=== PATIENT | male | born 1955 | race Caucasian/White ===

== ENCOUNTER → 2023-07-28 13:33 | Outpatient (REF) | payer MEDICARE, SELFPAY | LOC: RAD 13:33 | PROVIDERS: ATTENDING PHYSICIAN Family Medicine | DX: I10 Essential (primary) hypertension (principal); M79.89 Other specified soft tissue disorders | CPT/HCPCS: 93971 ==

== ENCOUNTER → 2023-10-16 11:30 | Outpatient (REF) | payer MEDICARE, SELFPAY | LOC: RAD 11:30 | PROVIDERS: ATTENDING PHYSICIAN Family Medicine | DX: M25.562 Pain in left knee (principal) | CPT/HCPCS: 73564 ==

== ENCOUNTER 2024-06-20 06:19 | Day surgery (SDC) | payer MEDICARE, SELFPAY | END 2024-06-20 10:55 | disposition home or self-care (01) | LOC: GI 06:19 | PROVIDERS: ATTENDING PHYSICIAN Internal Medicine Gastroenterology | DX: Z12.11 Encounter for screening for malignant neoplasm of colon (principal); D12.0 Benign neoplasm of cecum; K57.30 Diverticulosis of large intestine without perforation or abscess without bleeding; K64.8 Other hemorrhoids; Z80.0 Family history of malignant neoplasm of digestive organs | CPT/HCPCS: 45380; 88305 ==

== ENCOUNTER → 2024-07-08 15:09 | Outpatient (REF) | payer MEDICARE, SELFPAY | LOC: PAVMRI 15:09 | PROVIDERS: ATTENDING PHYSICIAN Orthopaedic Surgery; FAMILY PHYSICIAN Family Medicine | DX: M25.562 Pain in left knee (principal) | CPT/HCPCS: 73721 ==

== ENCOUNTER → 2024-09-22 07:50 | Outpatient (REF) | payer MEDICARE, SELFPAY | LOC: RAD 07:50 | PROVIDERS: ATTENDING PHYSICIAN Family Medicine | DX: Z87.891 Personal history of nicotine dependence (principal); Z91.89 Other specified personal risk factors, not elsewhere classified | CPT/HCPCS: 76770 ==

== ENCOUNTER → 2024-10-13 13:13 | Outpatient (REF) | payer MEDICARE, SELFPAY | LOC: RAD 13:13 | PROVIDERS: ATTENDING PHYSICIAN Family Medicine | DX: N28.9 Disorder of kidney and ureter, unspecified (principal) | CPT/HCPCS: 74174; Q9967 ==

== ENCOUNTER 2024-12-11 15:50 | Inpatient (IN) | payer MEDICARE, SELFPAY ==
[2024-12-11 12:24] VITALS: BP 130/86
[2024-12-11 12:45] LABS: Urine Character Slightly Cloudy (Clear)
[2024-12-11 12:53] LABS: Urine Red Blood Cell 0-2 /HPF (0-2); Urine Squamous Cell 0-2 /LPF (Few)
--- NOTE | 2024-12-11 13:16 | ED.GENMED ---
History of Present Illness
General
Chief Complaint: Fever
Source: patient and spouse
Exam Limitations: none
Time Seen by Provider: 12/11/24 13:01
History of Present Illness
History of Present Illness:
69-year-old male complaining of pyuria hematuria fevers chills urinary urgency and frequency. Symptoms started 2 days ago. Temperature low-grade. But fever and chills. Some mild right back pain. History of kidney stones.
Past History
Past History
ED Past Medical History: HTN and Other (Ocular migraine)
ED Past Surgical History: Other (Noncontributory)
Social History
Tobacco: Non-smoker
Personal:
Living: with family
Review of Systems
Review of Systems
All Other Systems: Not applicable
Constitutional: Reports fever and chills
Respiratory: Reports no symptoms
ABD/GI: Reports no symptoms
Phy Exam
Physical Exam
Physical Exam:
GENERAL: Alert and oriented in no apparent distress
EYE: Orbits normal.
NECK: Supple
CARDIAC: Regular rate and rhythm without any obvious murmurs.
LUNGS: Clear breath sounds,normal
ABDOMEN: Soft, without focal tenderness or distention. Questionable mild right CVA tenderness. No rebound or guarding no mass or hernia
NEUROLOGICAL: Alert and oriented , grossly non-focal
SKIN: Warm and dry, no rash or lesion, no discoloration, skin intact.
MUSCULOSKELETAL: No edema,no deformity.Good color
PSYCH: Normal and appropriate interaction.
Course
Orders/Labs/Results
Orders:
Orders
12/11/24 12:32
Urinalysis Reflex To Culture Urgent
Date Specimen was Collected: 12/11/24
Time Specimen was Collected: 12:28
Urine Microscopic Reflex Cult Urgent
Urine Culture Urgent
AKBAR Source: U
Specimen Description:
Date Specimen was Collected: 12/11/24
Time Specimen was Collected: 12:28
12/11/24 13:08
IV Insert/Care/Rem.- Treatment PRN
0.9% Sodium Chloride 1000 ml [Nss] 1,000 ml IV BOLUS
Cefepime HCl [Maxipime] 2,000 mg IV NOW STA
12/11/24 13:09
CT Abd/pel Without Iv Or Oral Urgent
Comment:
Reason For Exam: Back pain/hematuria/pyuria
12/11/24 13:14
Basic Metabolic Panel Urgent
Complete Blood Count/With Diff Urgent
12/11/24 13:15
Blood Culture Q30M
AKBAR Source: Blood/Venous
Specimen Description:
Blood Culture Q30M
AKBAR Source: Blood/Venous
Specimen Description:
12/11/24 14:02
Lactic Acid Urgent
12/11/24 Dinner
Regular
At Your Request: Full Participation
Does patient need a safe tray?: No
12/11/24 15:13
Admit/Transfer Patient As Directed
Co-Sign Provider:
Level of Care: Inpatient admission
Assign to:: Medical/Surgical
Physician / Group: titi
Diagnosis: pyelonephritis
Reason for Hospitalization: pyelonephritis
Expected length of stay greater than two midnights?: Yes
ELOS- Estimated Length of Stay in days: 2
I certify the patient meets the requirements for IP care: Yes
Code Status As Directed
Resuscitation Status: Full Code
PRN Pain Medication Management As Directed
May give lesser potent ordered pain med per pt: Yes
preference::
Protocol:: Medication orders for pain may be administered in a
manner that supports deferring to patient preference
when the pt is:
- Requesting an ordered lesser potent pain medication.
Least to most potent pain medications are defined
as: acetaminophen < NSAID < tramadol < opioids
(morphine, oxycodone, hydromorphone).
- Requesting a lesser dose of the same medication IF
ORDERED.
- Requesting a less intrusive route of administration
if both routes are prescribed by the provider (PO <
IV).
12/11/24 15:45
Ondansetron Injectable [Zofran] 4 mg IV Q6HPRN PRN
12/11/24 16:09
0.9% Sodium Chloride 1000 ml [Nss] 1,000 ml IV 100 mls/hr
Acetaminophen [Tylenol] 650 mg PO Q4HPRN PRN
Ibuprofen [Motrin] 200 mg PO Q6HPRN PRN headaches
12/11/24 16:09
Activity As Directed
Activity Level: As Tolerated
Pneumatic Compression Sleeves As Directed
Type: Knee high
Vital Signs As Directed
Frequency: Per unit guidelines
DX Deep Vein Thrombosis Video Routine
12/11/24 18:00
CefTRIAXone [Rocephin] 1,000 mg IV Q24H
12/12/24 06:00
Complete Blood Count/With Diff IN AM
Comprehensive Metabolic Panel IN AM
12/12/24 08:00
Amlodipine [Norvasc] 5 mg PO DAILY
Abnormal Lab Results
12/11/24 12/11/24
12:32 13:14
WBC 19.6 H 10^3/uL
(4.8-10.8)
RBC 4.26 L 10^6/uL
(4.70-6.10)
MCV 96.5 H fL
(80.0-94.0)
MCH 33.3 H pg
(27.0-31.0)
MPV 10.9 H fL
(7.4-10.4)
Abs Immat Gran (auto) 0.4 H 10^3/uL
(0-0.05)
Absolute Neuts (auto) 17.0 H 10^3/uL
(1.4-6.5)
Absolute Lymphs (auto) 1.1 L 10^3/uL
(1.2-3.4)
Absolute Monos (auto) 1.1 H 10^3/uL
(0.1-0.6)
Immature Gran % 2.2 H %
(0-0.5)
Neutrophils % 86.5 H %
(42.2-75.2)
Lymphocytes % 5.4 L %
(20.5-51.1)
BUN 27 H mg/dl
(9-20)
Glucose 117 H mg/dl
(70-99)
Ur Occult Blood Reflex 2+ A
(Negative)
Leukocyte Esterase Rfl 3+ A
(Negative)
Urine WBC (Reflex) 11-15 A /HPF
(0-5)
Urine Bacteria (Reflex) Many A
(Negative)
Urine Albumin (Reflex) 1+ A
(Neg - Trace)
12/11/24 13:14
12/11/24 13:14
Vital Signs
Initial and Last Documented VS:
Initial Vital Signs
Temp Pulse Resp BP Pulse Ox
97.9 F 90 16 130/86 100
12/11/24 12:24 12/11/24 12:24 12/11/24 12:24 12/11/24 12:24 12/11/24 12:24
Last Documented Vital Signs
Temp Pulse Resp BP Pulse Ox
98.5 F 91 18 121/87 96
12/11/24 23:33 12/11/24 23:33 12/11/24 23:33 12/11/24 23:33 12/11/24 23:33
MDM/Problems Addressed
Differential Diagnosis Includes:
Patient clearly describing a genitourinary issue. Describing UTI/possible pyelopossible kidney stone. Workup in progress.
*Radiology
Radiology exam reviewed: radiology read reviewed (No obstructing stones. Cystitis. Mild proctitis)
*Pulse Oximetry
SaO2: 100
Oxygen Mode of Delivery: Room air
Patient hypoxic: no (96)
*Critical Care Note
Total Time (30-74mins, 75-104mins- exclusive of procedures): Not Applicable
Data Reviewed
Review of Other/Old Records Reveals: Labs, Records and Testing
ED Attending Note
-
Portions of this chart may have been created with voice recognition software.� Occasional wrong word or��sound alike� substitutions may have occurred due to the inherent limitations of voice recognition software.
Discharge Plan
Departure
Patient Disposition: Admit
Date of Disposition: 12/11/24
Time of Disposition: 14:56
Presentation/result/management discussed w/ accepting MD/DO: Hospitalist
Discharge Problem:
UTI/early pyelonephritis
Interventions
Interventions:
*Risk Screen - Suicide Last Done: 12/11/24 12:24
*General Assessment Last Done: 12/11/24 13:33
*Neglect/Abuse Screening Last Done: 12/11/24 12:24
*ED- Fall Risk Assessment Last Done: 12/11/24 13:33
*ED COVID-19 Vaccine History Last Done: 12/11/24 13:33
*Nursing Disposition Last Done: 12/11/24 16:06
ED- Neurological Assessment Last Done: 12/11/24 14:07
ED-Skin Assessment Last Done: 12/11/24 14:07
Discharge Date and Time
Discharge Date/Time: 12/11/24 16:07
[2024-12-11] MEDS: NSS 1000 IV ×2 (13:25→17:04)
[2024-12-11] MEDS: MAXIPIME 2000 MG IV (13:25)
[2024-12-11 13:29] LABS: Hematocrit 41.1 % (39.0-52.0); Hemoglobin 14.2 g/dL (13.0-18.0); Mean Corp Hgb Conc. 34.5 g/dL (33.0-37.0); Mean Corpuscular Volume 96.5 fL (80.0-94.0); Nucleated Red Blood Cells % 0 % (-); Platelet Count 185 10^3/uL (130-400); Red Cell Dist. Width 13.3 % (11.5-14.5)
[2024-12-11 13:30] VITALS: BP 125/82
[2024-12-11 13:43] LABS: Blood Urea Nitrogen 27 mg/dl (9-20); Calcium 9.6 mg/dl (8.4-10.2); Carbon Dioxide 25 mmol/L (22-30); Chloride 102 mmol/L (98-107); Glucose 117 mg/dl (70-99); Potassium 3.8 mmol/L (3.5-5.1); Sodium 135 mmol/L (135-145); eGFR > 60.00
--- NOTE | 2024-12-11 15:19 | HPS.HSE ---
Family Physician
-
Family Physician: Robert Solis
Chief Complaint
-
urinary symptoms
History of Present Illness
69-year-old male past medical history of kidney stones, ocular migraine, hypertension, presenting with pain with urination and increased frequency, blood in the urine, fever chills, symptoms are 2 days ago. Low-grade fever. He has some mild back
pain in the right side of the back. He did have nausea and vomiting.
His sister had kidney stones.
Drinks alcohol occasionally. Denies smoking.
Medical History
Past Medical History
Past Medical History: Reports Other (kidney stones, ocular migraine, hypertension,)
Past Surgical History: Reports None
Social History
Tobacco: Non-smoker
Alcohol: Occasional
Drug: None
Family History
Family History: Not pertinent
Allergies / Home Medications
Allergies reflects when Allergies were last updated in [facility].
Home Medications with original date entered in [facility]
Allergy/Medication List:
Allergies
Allergy/AdvReac Type Severity Reaction Status Date / Time
metronidazole (From Flagyl) Allergy Rash Verified 12/11/24 12:23
Metronidazole HCl (From Allergy Rash Verified 12/11/24 12:23
Flagyl)
Home Medications
amlodipine 5 mg tablet (Norvasc) 5 mg PO DAILY 12/11/24
ibuprofen 200 mg tablet (Advil) 200 mg PO Q6HPRN PRN headaches 12/11/24
Review of Systems
-
History Source: Patient
A 12 point ROS was completed and negative except as noted: Yes
Constitutional: Reports No Symptoms
EENT: Reports No Symptoms
Respiratory: Reports No Symptoms
Cardiac: Reports No Symptoms
Abdomen/GI: Reports No Symptoms
: Reports No Symptoms
Musculoskeletal: Reports No Symptoms
Skin: Reports No Symptoms
Neurological: Reports No Symptoms
Endocrine: Reports No Symptoms
Hematologic/Lymphatic: Reports No Symptoms
Psych: Reports No Symptoms
Physical Exam
Vital Signs
Vital Signs
Temp Pulse Resp BP Pulse Ox
98.7 F 85 16 125/82 98
12/11/24 14:07 12/11/24 13:30 12/11/24 13:30 12/11/24 13:30 12/11/24 13:30
Physical Exam
General: Well Developed, Well Nourished and No Apparent Distress
HEENT: NormoCephalic, Moist mucous membranes and Atraumatic
Respiratory: Clear
Cardiac: S1/S2 and Regular Rhythm; No Murmur or Rub
GI: Soft, Non Tender, Non Distended and Normal Bowel Sounds; No Organomegaly
Rectal: Deferred by Provider
Musculoskeletal: No Clubbing, No Cyanosis and No Edema
Skin: No Rash
Neuro: Nonfocal/grossly intact
Laboratory Results
-
12/11/24 13:14
12/11/24 13:14
Laboratory Results
Lactic Acid Cancelled 12/11/24 18:15
Data Reviewed
-
Lab Data: Labs Reviewed by me
Old Records: Reviewed
Impression/Plan
-
IMPRESSION:
PLAN:
# Acute probably right-sided pyelonephritis
-CT scan report pending to rule out obstructive stone
- Urine culture, blood cultures
-IV fluids
-Ceftriaxone
- Zofran, Tylenol, ibuprofen PRN
History of nephrolithiasis
History of ocular migraines
Essential hypertension
- Continue amlodipine
Full code
DVT prophylaxis�SCDs
Regular diet
[2024-12-11] MEDS: ZOFRAN 4 MG IV (15:51)
[2024-12-11 15:54] VITALS: BP 144/87
[2024-12-11 16:24] VITALS: BP 146/80
[2024-12-11 16:56] VITALS: BMI 31.1
[2024-12-11] MEDS: TYLENOL 650 MG PO (17:37)
[2024-12-11] MEDS: STERILE WATER FOR INJECTION 10 ML IV (20:21)
[2024-12-11] MEDS: ROCEPHIN 1000 MG IV (20:21)
[2024-12-11 23:33] VITALS: BP 121/87
[2024-12-12] MEDS: NSS 1000 IV ×3 (03:22→22:02)
[2024-12-12 05:29] VITALS: BMI 30.6
[2024-12-12 07:16] VITALS: BP 144/83
[2024-12-12] MEDS: NORVASC 5 MG PO (07:38)
[2024-12-12 08:10] LABS: Hematocrit 36.8 % (39.0-52.0); Hemoglobin 12.7 g/dL (13.0-18.0); Mean Corp Hgb Conc. 34.5 g/dL (33.0-37.0); Mean Corpuscular Volume 97.1 fL (80.0-94.0); Nucleated Red Blood Cells % 0 % (-); Platelet Count 160 10^3/uL (130-400); Red Cell Dist. Width 13.1 % (11.5-14.5)
[2024-12-12 09:12] LABS: ALT (SGPT) 17 U/L (0-50); AST (SGOT) 19 U/L (17-59); Albumin 3.4 g/dl (3.5-5.0); Alkaline Phosphatase 64 U/L (38-126); Blood Urea Nitrogen 19 mg/dl (9-20); Calcium 8.7 mg/dl (8.4-10.2); Carbon Dioxide 20 mmol/L (22-30); Chloride 109 mmol/L (98-107); Estimated Creatinine Clearance 92 ml/min; Glucose 111 mg/dl (70-99); Potassium 4.1 mmol/L (3.5-5.1); Sodium 134 mmol/L (135-145); Total Protein 5.6 g/dl (6.3-8.2); eGFR > 60.00
[2024-12-12] MEDS: COLACE 100 MG PO ×2 (12:27→19:17)
[2024-12-12] MEDS: TYLENOL 650 MG PO ×2 (12:28→17:57)
--- NOTE | 2024-12-12 13:19 | W.PN.HOSP.TC ---
Addendum entered and electronically signed by Madan Garcia MD 12/12/24 14:18:
Persistently tachycardic here, EKG with new onset A-fib. Trial of Lopressor. Cardiology evaluation
Check echo
Check TSH with reflex to free T4
Original Note:
Today's Communication/Plan
-
Monitor vital signs see plan
Follow blood culture and urine culture
Continue with ceftriaxone
Assessment / Plan
Assessment / Plan
General: Well Developed, Well Nourished and No Apparent Distress
HEENT: NormoCephalic, Moist mucous membranes and Atraumatic
Respiratory: Clear
Cardiac: S1/S2 and Regular Rhythm; No Murmur or Rub
GI: Soft, Non Tender, Non Distended and Normal Bowel Sounds
Musculoskeletal: No Clubbing, No Cyanosis and No Edema
Neuro: Nonfocal/grossly intact
Acute probably right-sided pyelonephritis
Sepsis likely secondary to above, blood culture pending
-CT scan without obstructive stone, does show pyelonephritis, cystitis. Denies any rectal pain
-Urine culture growing gram-negative rods, blood culture pending
Gentle hydration
-Ceftriaxone
- Zofran, Tylenol, ibuprofen PRN
Constipation
Start Colace
History of nephrolithiasis
History of ocular migraines
Essential hypertension
- Continue amlodipine
Full code
DVT prophylaxis�SCDs
Anticipated Discharge: 24 - 48 hours
Subjective/Interval History
-
Date of Service: December 12, 2024
Denies nausea
Objective Data
-
Labs:
Laboratory Results
12/12/24
07:29
WBC 12.5 H
Hgb 12.7 L
Hct 36.8 L
Plt Count 160
Sodium 134 L
Potassium 4.1
Chloride 109 H
Carbon Dioxide 20 L
BUN 19
Creatinine 0.9
Glucose 111 H
Calcium 8.7
Total Bilirubin 1.0
AST 19
ALT 17
Alkaline Phosphatase 64
Vital Signs:
Vital Signs
Temp Pulse Resp BP Pulse Ox
100 F 113 20 144/83 96
12/12/24 12:26 12/12/24 07:16 12/12/24 07:16 12/12/24 07:16 12/12/24 07:16
I&O
12/11/24 12/12/24 12/13/24
06:59 06:59 06:59
Intake Total 1200 / 1200
Balance 1200 / 1200
[2024-12-12 14:17] VITALS: BP 126/78
[2024-12-12] MEDS: LOPRESSOR 5 MG IV (14:23)
--- NOTE | 2024-12-12 15:01 | CON.CAR ---
Addendum entered and electronically signed by Nader Serrato MD 12/12/24 18:16:
Patient seen and examined in collaboration with PGY-2 [employer]; agree with below.
- 69-year-old male with hypertension admitted with pyelonephritis; cardiology consulted for new onset atrial fibrillation with RVR.
- The patient is asymptomatic in terms of his atrial fibrillation; heart rates up to 120s.
- Examination: Heart irregular rate and rhythm, normal S1-S2, no murmurs rubs/gallops; lungs CTA bilaterally; no edema.
Assessment/plan:
- New onset paroxysmal atrial fibrillation, asymptomatic.
- Rate-control strategy, as patient is asymptomatic.
- C2V score equals 2; systemic anticoagulation indicated--after a lengthy discussion in terms of increase stroke risk, patient is agreeable.
- Recommend starting Eliquis 5 mg twice daily and metoprolol tartrate 25 mg twice daily.
- Will stop amlodipine 5 mg daily with initiation of metoprolol tartrate to avoid hypotension.
- property assessment monitor; will reassess tomorrow.
Original Note:
Documented by User: Barbara Diamond MD, Resident 12/12/24 16:09
Consultation
Consultation Request
Date/Time Consultation Requested: 12/12/2024 14:14
Date/Time Consultation Performed: 12/12/2024 14:50
Requesting Provider: Dr. Madan Garcia
Performing Provider: Dr. Tomy Serrato
Reason for Consultation: A.fib
Medical History
-
Chief Complaint: Sepsis secondary to acute pylonephritis
History of Present Illness:
69-year-old male with past medical history of hypertension, ocular migraine and a kidney stone presented to the ED with fever, chills, N/V, hematuria and pus in the urine. His symptoms started about 3 days ago while he was on vacation. He started
with nausea, vomiting, fever, chills and initially thought he had the flu. After he got back from vacation, he noticed to have blood and pus in the urine. He started to have some mild back pain as well. He came into the ED for further evaluation.
In the ED, blood pressure 175/97, heart rate 85, respiratory rate 16, afebrile, WBC 19.6, creatinine 1.0, LA 1.1, UA blood 2+, leukocyte Estrace 3+, many bacteria in the urine. Abdomen/pelvis CT revealed possible mild left pyelonephritis and
cystitis. He was diagnosed with sepsis secondary to acute pyelonephritis. Urine culture grew gram-negative rods. Blood cultures pending. Patient was started on fluids and ceftriaxone.
Today, patient noted to be tachycardic. Patient's noted this is particularly odd as heart rate is usually in the 60s. BP stable. EKG revealed atrial fibrillation and 5mg lopressor given. Cardiology was then consulted for further eval.
Past Medical History
Past Medical History: HTN and Other (ocular migraine, kidney stone)
Past Surgical History: None
Social History
Tobacco: Former Smoker (20 pack year hx, quite in mid 30's. )
Alcohol: Occasional
Drug: None
Personal:
Living: With Family
Family History
Family History: Cancer
Allergies / Home Medications
Allergy/AdvReac Type Severity Reaction Status Date / Time
metronidazole (From Flagyl) Allergy Rash Verified 12/11/24 12:23
Metronidazole HCl (From Allergy Rash Verified 12/11/24 12:23
Flagyl)
�Medication �Instructions �Recorded �Confirmed �Type
amlodipine 5 mg tablet (Norvasc) 5 mg PO DAILY Blood Pressure 12/11/24 12/11/24 History
ibuprofen 200 mg tablet (Advil) 200 mg PO Q6HPRN PRN headaches 12/11/24 12/11/24 History
Review of Systems
-
History Source: Patient
Constitutional: Fever and Chills
EENT: No Symptoms
Respiratory: No Symptoms
Cardiac: No Symptoms
Abdomen/GI: Nausea
: Frequency
Neurological: No Symptoms
Physical Exam
Vital Signs
Temp Pulse Resp BP Pulse Ox
99.0 F 104 20 126/78 94
12/12/24 14:17 12/12/24 14:23 12/12/24 07:16 12/12/24 14:23 12/12/24 14:17
Lab Results
12/12/24 07:29
12/12/24 07:29
Physical Exam
General: Fever and Sweats
Respiratory: Clear
Cardiac: Irregular Rhythm
GI: Soft, Non Tender, Non Distended and Normal Bowel Sounds
Musculoskeletal: No Cyanosis and No Edema
Skin: Warm
Neuro: AO x 3
Psych: Calm
Impression / Plan
-
69-year-old male with past medical history of hypertension presenting to the hospital with sepsis secondary to acute left sided pyelonephritis with newly diagnosed A-fib noted during hospital stay.
Asymptomatic A.fib
-EKG revealed a.fib
-[id number] score 2 for age and HTN - denies any hx CHF, vascular dz, cerebrovascular event or diabetes. No hx major bleeds.
-Start Eliquis 5mg BID as no procedures upcoming
-Metoprolol tartrate 25mg BID - tartrate vs succinate in setting of acute illness in case need to d/c if BP drops.
-TSH 0.61
-Echo pending
-Cont tele
HTN
-Cont amlodipine 5. Will d/c if BP drops in favor of BB
Sepsis secondary to acute left sided pyelonephritis
-Cont medical management per primary team
DVT eliquis
Full Code
Connie and daughters at bedside. Discussed risks and benefits of long-term anticoagulation. Agreeable to Eliquis.

Documented by User: Nader Serrato MD 12/12/24 18:09
Consultation
Consultation Request
Performing Provider: Dr. Nader Serrato
Data Reviewed
-
EKG: Tracing Personally Visualized and interpreted (AFIB at 97 bpm.)
Labs: Labs Reviewed by me, Discussed with Patient and Discussed with Family ( and daughters at bedside.)
[2024-12-12 15:20] VITALS: BP 116/59
--- NOTE | 2024-12-12 15:53 | CM ---
call manager reviewed patient's chart and met with patient and spouse at bedside, patient reports that he is independent with adl's and ambulation, no dme, patient drives, home when stable, no needs.
PCP: Dr. Solis
Pharmacy: [facility].
[2024-12-12 19:00] VITALS: BP 122/74
[2024-12-12] MEDS: LOPRESSOR 25 MG PO (19:17)
[2024-12-12] MEDS: ROCEPHIN 1000 MG IV (19:17)
[2024-12-12] MEDS: STERILE WATER FOR INJECTION 10 ML IV (19:17)
[2024-12-12] MEDS: ELIQUIS 5 MG PO (19:17)
[2024-12-12 23:00] VITALS: BP 131/91
[2024-12-13] VITALS (8 sets, daily range): BP systolic 123–141; BP diastolic 59–87
[2024-12-13] MEDS: NSS 1000 IV (07:58)
[2024-12-13 07:59] LABS: Hematocrit 36.7 % (39.0-52.0); Hemoglobin 12.5 g/dL (13.0-18.0); Mean Corp Hgb Conc. 34.1 g/dL (33.0-37.0); Mean Corpuscular Volume 96.6 fL (80.0-94.0); Nucleated Red Blood Cells % 0 % (-); Platelet Count 142 10^3/uL (130-400); Red Cell Dist. Width 13.1 % (11.5-14.5)
[2024-12-13] MEDS: ELIQUIS 5 MG PO ×2 (08:08→20:00)
[2024-12-13] MEDS: NORVASC 5 MG PO (08:08)
[2024-12-13] MEDS: LOPRESSOR 25 MG PO ×2 (08:08→20:00)
[2024-12-13] MEDS: COLACE PO ×2 (08:08→19:59)
--- NOTE | 2024-12-13 08:38 | W.PN.CD ---
Addendum entered and electronically signed by Gutierrez Paris MD 12/13/24 10:10:
I saw and evaluated the patient. I reviewed the resident�s note and agree with findings and plan as documented in the resident�s note.
69 year old male admitted with pyelonephritis who is noted to have new onset afib. Time of onset unknown. Currently with adequate rate control at rest with HR of 70sto 80s. Some short periods of accelerated rates on telemetry. Asymptomatic
- continue metoprolol which can be titrated if additional rate control is needed
- Eliquis 5mg BID
- tx of pyelonephritis per primary team
- echo
- after additional recovery from infection and > 3 weeks continuous anticoagulation, if the patient is still in afib then we will plan for elective, outpatient cardioversion
Original Note:
Today's Communication / Plan
-
Cont metoprolol 25 BID and Eliquis 5 BID
Impression / Plan
-
69-year-old male with past medical history of hypertension presenting to the hospital with sepsis secondary to acute left sided pyelonephritis with newly diagnosed A-fib noted during hospital stay.
Asymptomatic new onset A.fib
-EKG revealed a.fib
-[id number] score 2 for age and HTN - denies any hx CHF, vascular dz, cerebrovascular event or diabetes. No hx major bleeds.
-Cont Eliquis 5mg BID as no procedures upcoming
-One episode of HR >140, however overall stable. Cont metoprolol tartrate 25 BID. May increase if multiple episodes of HR >140s.
-TSH 0.61
-Echo pending
-Cont tele
HTN
-Cont amlodipine 5. Will d/c if BP drops in favor of BB
Sepsis secondary to acute left sided pyelonephritis
-Cont medical management per primary team
DVT eliquis
Full Code
Physical Exam
Vital Signs/Labs
Vital Signs
Temp Pulse Resp BP Pulse Ox
98.9 F 94 16 123/79 99
12/13/24 07:52 12/13/24 07:52 12/13/24 07:52 12/13/24 07:52 12/13/24 07:52
12/12/24 12/13/24 12/14/24
06:59 06:59 06:59
Actual Weight 99.564 kg
12/13/24 07:19
Physical Exam
Constitutional: Comfortable
Cardiovascular: Pedal edema is absent, Rhythm/rate is irregular and Murmur/rub/gallop absent
Respiratory: Respiratory effort normal and Lungs clear to auscul.
GI: Soft and Normal bowel sounds
Neuro/Psych: AO x 3
Data Reviewed
-
Date of Service: December 13, 2024
[2024-12-13 09:08] LABS: Blood Urea Nitrogen 18 mg/dl (9-20); Calcium 8.3 mg/dl (8.4-10.2); Carbon Dioxide 22 mmol/L (22-30); Chloride 109 mmol/L (98-107); Estimated Creatinine Clearance 103 ml/min; Glucose 102 mg/dl (70-99); Potassium 4.2 mmol/L (3.5-5.1); Sodium 137 mmol/L (135-145); eGFR > 60.00
--- NOTE | 2024-12-13 09:35 | CM ---
Chart reviewed and patient to return to home with spouse when stable, caseworker received a request to check on pricing of Eliquis, cost of Eliquis $31.80 per month, physician and patient made aware.
Plan; Home with spouse when stable, no needs.
--- NOTE | 2024-12-13 10:24 | W.PN.HOSP.TC ---
Today's Communication/Plan
-
monitor vitals
see plan
cw abx
follow fever curve; if continues then will need ID evaluation
cw metoprolol,Eliquis
Assessment / Plan
Assessment / Plan
General: Well Developed, Well Nourished and No Apparent Distress
HEENT: NormoCephalic, Moist mucous membranes and Atraumatic
Respiratory: Clear
Cardiac: S1/S2 and irregular Rhythm
GI: Soft, Non Tender, Non Distended and Normal Bowel Sounds
Musculoskeletal: No Clubbing, No Cyanosis and No Edema
Neuro: Nonfocal/grossly intact
Acute probably right-sided pyelonephritis
Sepsis likely secondary to above, blood culture pending
-CT scan without obstructive stone, does show pyelonephritis, cystitis. Denies any rectal pain
-Urine culture grew morganella, blood culture NGTD
still continue to spike fever; monitor . if continues then will need ID evaluation
DC further IVF
-Ceftriaxone
- Zofran, Tylenol, ibuprofen PRN
New onset afib with RVR
now on metoprolol
CHADVASC 2; started eliquis
outpatient cardiology follow up
Constipation
resolved
History of nephrolithiasis
History of ocular migraines
Essential hypertension
- Continue amlodipine
Full code
DVT prophylaxis�eliquis
Anticipated Discharge: Within 24 hours
Subjective/Interval History
-
Date of Service: December 13, 2024
fever overnight
Objective Data
-
Labs:
Laboratory Results
12/13/24
07:19
WBC 6.1
Hgb 12.5 L
Hct 36.7 L
Plt Count 142
Sodium 137
Potassium 4.2
Chloride 109 H
Carbon Dioxide 22
BUN 18
Creatinine 0.8
Glucose 102 H
Calcium 8.3 L
Vital Signs:
Vital Signs
Temp Pulse Resp BP Pulse Ox
98.9 F 94 16 123/79 99
12/13/24 07:52 12/13/24 07:52 12/13/24 07:52 12/13/24 07:52 12/13/24 07:52
I&O
12/12/24 12/13/24 12/14/24
06:59 06:59 06:59
Intake Total 1200 / 1200 1200 / 1200
Balance 1200 / 1200 1200 / 1200
--- NOTE | 2024-12-13 13:37 | PN.CDI ---
CDI
- -
CDI:
Physician Documentation Request
Admit Date: 12/11/24 15:50
Dear Doctor Jose,
Please review the following and provide your response in the progress notes.
Clinical Indicators:
Pt admitted with Sepsis 2/2 Acute pyelonephritis
Documented per 12/13 progress note ,' Urine culture grew Morganella...Ceftriaxone...'
Please provide a diagnosis for above findings/treatment :
UTI
Urine culture with Morganella only
Other ( please specify)
Use of terms such as suspected, likely, concern for, or probable (associated with a specific diagnosis that is being evaluated, monitored, or treated as if it exists) are acceptable and can be coded in the inpatient setting, when documented at the
time of discharge.
Thank you,
Licha Vivas RN
CDI Specialist
[facility]
Please use your independent medical judgment in providing your response.
[2024-12-13] MEDS: TYLENOL 650 MG PO (17:16)
[2024-12-13] MEDS: STERILE WATER FOR INJECTION 10 ML IV (20:00)
[2024-12-13] MEDS: ROCEPHIN 1000 MG IV (20:01)
[2024-12-14 03:24] VITALS: BP 111/60
[2024-12-14 07:00] VITALS: BP 144/87
[2024-12-14] MEDS: NORVASC 5 MG PO (07:57)
[2024-12-14] MEDS: LOPRESSOR 25 MG PO (07:57)
[2024-12-14] MEDS: ELIQUIS 5 MG PO (07:57)
[2024-12-14] MEDS: TUMS CHEWABLE TABLET 400 MG PO (07:58)
[2024-12-14] MEDS: COLACE PO (07:58)
--- NOTE | 2024-12-14 08:38 | W.PN.CD ---
Addendum entered and electronically signed by Nader Serrato MD 12/14/24 11:59:
Patient seen and examined in collaboration with PGY-2 Tree Surgeon; agree with below.
- Patient remains in atrial fibrillation, but asymptomatic.
- Examination: Irregular rate and rhythm, normal S1/S2, no M/R/G; CTA bilaterally; no edema.
- Continue metoprolol tartrate 12.5 mg BID and Eliquis BID.
- Outpatient follow-up with Cardiology.
Original Note:
Documented by User: Barbara Diamond MD, Resident 12/14/24 08:52
Today's Communication / Plan
-
Cont eliquis and metoprolol 25 BID
Impression / Plan
-
69-year-old male with past medical history of hypertension presenting to the hospital with sepsis secondary to acute left sided pyelonephritis with newly diagnosed A-fib noted during hospital stay.
Asymptomatic new onset A.fib
-[id number] score 2 for age and HTN
-HR stable overnight
-TSH 0.61
-Echo LVEF 55-60% without regional wall abnormalities
-Cont eliquis 5mg BID and metoprolol 25 BID
-Cont tele
HTN
-Cont amlodipine 5. Will d/c if BP drops in favor of BB
Sepsis secondary to acute left sided pyelonephritis
-Cont medical management per primary team
DVT eliquis
Full Code
Physical Exam
Vital Signs/Labs
Vital Signs
Temp Pulse Resp BP Pulse Ox
97.9 F 89 22 144/87 90
12/14/24 03:24 12/14/24 07:57 12/14/24 03:24 12/14/24 07:57 12/14/24 03:24
Physical Exam
Constitutional: No acute distress and Comfortable
Cardiovascular: Pedal edema is absent, Rhythm/rate is irregular and Rub absent
Respiratory: Lungs clear to auscul.
GI: Soft, Distention absent and Normal bowel sounds
Neuro/Psych: AO x 3
Data Reviewed
-
Date of Service: December 14, 2024

Documented by User: Nader Serrato MD 12/14/24 11:50
Data Reviewed
-
EKG: Tracing Personally Visualized and interpreted (Telemetry: A-fib)
Echo: Report Reviewed by me (Transthoracic echocardiogram 01/01/2025: LVEF 55-60%, no significant valvular disease.)
Medical Tests (PFT, Pathology etc): Discussed with Physician (PGY-2 Resident)
Labs: Labs Reviewed by me
[2024-12-14 08:44] LABS: Blood Urea Nitrogen 20 mg/dl (9-20); Calcium 8.7 mg/dl (8.4-10.2); Carbon Dioxide 25 mmol/L (22-30); Chloride 107 mmol/L (98-107); Estimated Creatinine Clearance 118 ml/min; Glucose 116 mg/dl (70-99); Potassium 3.9 mmol/L (3.5-5.1); Sodium 135 mmol/L (135-145); eGFR > 60.00
[2024-12-14 08:51] LABS: Hematocrit 36.1 % (39.0-52.0); Hemoglobin 12.5 g/dL (13.0-18.0); Mean Corp Hgb Conc. 34.6 g/dL (33.0-37.0); Mean Corpuscular Volume 95.8 fL (80.0-94.0); Nucleated Red Blood Cells % 0 % (-); Platelet Count 156 10^3/uL (130-400); Red Cell Dist. Width 12.9 % (11.5-14.5)
--- NOTE | 2024-12-14 10:59 | CM ---
Home with spouse no needs when stable.
Plan; Home no needs.
[2024-12-14 11:00] VITALS: BP 166/99
--- NOTE | 2024-12-14 11:37 | W.PN.HOSP.TC ---
Today's Communication/Plan
-
Monitor vital signs see plan
Switch antibiotics to oral
Discharge today
Continue metoprolol, Eliquis
Time of discharge 38 minutes
Assessment / Plan
Assessment / Plan
General: Well Developed, Well Nourished and No Apparent Distress
HEENT: NormoCephalic, Moist mucous membranes and Atraumatic
Respiratory: Clear
Cardiac: S1/S2 and irregular Rhythm
GI: Soft, Non Tender, Non Distended and Normal Bowel Sounds
Musculoskeletal: No Clubbing, No Cyanosis and No Edema
Neuro: Nonfocal/grossly intact
Acute probably right-sided pyelonephritis
UTI
Sepsis likely secondary to above, blood culture pending
-CT scan without obstructive stone, does show pyelonephritis, cystitis. Denies any rectal pain
-Urine culture grew morganella, blood culture NGTD
still continue to spike fever; monitor . if continues then will need ID evaluation. now afebrile for >24hrs
DC further IVF
-Ceftriaxone; transition to cefdinir
- Zofran, Tylenol, ibuprofen PRN
Urology follow-up outpatient
New onset afib with RVR
now on metoprolol; rate improving
CHADVASC 2; started eliquis
outpatient cardiology follow up
Constipation
resolved
History of nephrolithiasis
History of ocular migraines
Essential hypertension
- Continue amlodipine
Full code
DVT prophylaxis�eliquis
Anticipated Discharge: Today
Subjective/Interval History
-
Date of Service: December 14, 2024
denies pain
Objective Data
-
Labs:
Laboratory Results
12/14/24
07:49
WBC 6.8
Hgb 12.5 L
Hct 36.1 L
Plt Count 156
Sodium 135
Potassium 3.9
Chloride 107
Carbon Dioxide 25
BUN 20
Creatinine 0.7
Glucose 116 H
Calcium 8.7
Vital Signs:
Vital Signs
Temp Pulse Resp BP Pulse Ox
98.6 F 89 18 144/87 95
12/14/24 07:00 12/14/24 07:57 12/14/24 07:00 12/14/24 07:57 12/14/24 07:00
I&O
12/13/24 12/14/24 12/15/24
06:59 06:59 06:59
Intake Total 1200 / 1200 240 / 240
Balance 1200 / 1200 240 / 240
--- NOTE | 2024-12-14 11:57 | W.DCSUMMARY ---
Discharge Summary
Discharge Data
Date of Admission: 12/11/24
Date of Discharge: 12/14/24
-
Pending Results: No
Hospital Course
69-year-old male with past medical history of ocular migraine, hypertension, nephrolithiasis came to the hospital with acute right-sided pyelonephritis and urinary tract infection. Urine culture grew Morganella. Blood culture continue to be
negative. Over time patient fever continue to improve. CT scan was done which showed pyelonephritis, cystitis. Patient instructed to follow-up with urology outpatient. While patient was in the hospital he also developed new onset A-fib with RVR.
Patient was seen by cardiology and was started on metoprolol and Eliquis. He continued to be A-fib on discharge and was instructed to follow-up with cardiology closely outpatient for possible cardioversion. Once his symptoms continue to improve
and he had no subsequent fever, he was then discharged on oral antibiotics with instructions to follow-up with all his physicians outpatient.
Discharge Plan
-
Patient Disposition: Home (Routine Discharge)
Discharge Diagnosis/Procedures: Acute right-sided pyelonephritis
Urinary tract infection
New onset atrial fibrillation with RVR
Diet: As tolerated
Activity: As tolerated
Driving Restrictions: As prior to admission
Bathing Restrictions: None
Referrals:
Nader Serrato MD [Active, Cardiology] - in one week
Robert Solis MD [Primary Care Provider, Family Practice] - in less than 1 week
Savanna Angeles NP [Specified Professional Personl, Cardiology] - 01/04/25 2:00 pm
Matthew Espino MD [Active, Urology]
Prescriptions:
New
docusate sodium 100 mg Capsule
100 mg PO BID Qty: 0 0RF
metoprolol tartrate 25 mg Tablet
25 mg PO BID Qty: 60 0RF
Eliquis 5 mg Tablet
5 mg PO BID Qty: 60 0RF
cefdinir 300 mg capsule
300 mg PO BID Qty: 22 0RF
Probiotic 10 billion cell capsule
10,000 mmu cells PO DAILY Qty: 14 0RF
Continued
ibuprofen [Advil] 200 mg Tablet
200 mg PO Q6HPRN PRN (Reason: headaches)
Discontinued
amlodipine [Norvasc] 5 mg Tablet
5 mg PO DAILY
Discharge Orders:
Discharge Patient (As Directed); Ordered 12/14/24
Ordered By: Madan Garcia
Discharge Date and Time
Discharge Date/Time: 12/14/24 16:53
Print Language: MICRONESIAN
[2024-12-14 13:18] VITALS: BP 145/84
== END 2024-12-14 16:53 | disposition home or self-care (01) | DRG 872 ==
LOC: 4 WEST ACU 15:50
PROVIDERS: ADMITTING PHYSICIAN Hospitalist; ATTENDING PHYSICIAN Internal Medicine; CONSULT PHYSICIAN Internal Medicine; EMERGENCY PHYSICIAN Emergency Medicine; PRIMARYCARE PHYSICIAN Family Medicine
DX: A41.9 Sepsis, unspecified organism (principal); N10 Acute pyelonephritis; N39.0 Urinary tract infection, site not specified; I10 Essential (primary) hypertension; I48.0 Paroxysmal atrial fibrillation; Z87.891 Personal history of nicotine dependence; Z79.01 Long term (current) use of anticoagulants
CPT/HCPCS: 74176; 80048; 80053; 81003; 81015; 83605; 84443; 85025; 87040; 87070; 87077; 87086; 87186; 93005; 93306; 96361; 96374; 99285

== ENCOUNTER → 2025-01-17 11:35 | Outpatient (REF) | payer MEDICARE, SELFPAY | LOC: RAD 11:35 | PROVIDERS: ATTENDING PHYSICIAN Specialist; FAMILY PHYSICIAN Family Medicine | DX: N20.0 Calculus of kidney (principal) | CPT/HCPCS: 74018 ==

== ENCOUNTER → 2025-02-01 11:17 | Outpatient (REF) | payer MEDICARE, SELFPAY | LOC: HWRCS 11:17 | PROVIDERS: ATTENDING PHYSICIAN Nurse Practitioner; FAMILY PHYSICIAN Family Medicine | DX: I48.0 Paroxysmal atrial fibrillation (principal); R53.83 Other fatigue; I25.10 Atherosclerotic heart disease of native coronary artery without angina pectoris | CPT/HCPCS: 78452; 93017; A9500; J2785 ==

== ENCOUNTER 2025-02-02 19:14 | Observation (INO) | payer MEDICARE, SELFPAY ==
[2025-02-02 13:31] VITALS: BP 172/101
[2025-02-02 13:50] LABS: Hematocrit 43.2 % (39.0-52.0); Hemoglobin 14.5 g/dL (13.0-18.0); Mean Corp Hgb Conc. 33.6 g/dL (33.0-37.0); Mean Corpuscular Volume 97.3 fL (80.0-94.0); Nucleated Red Blood Cells % 0 % (-); Platelet Count 203 10^3/uL (130-400); Red Cell Dist. Width 13.2 % (11.5-14.5)
[2025-02-02 14:05] LABS: Urine Character Clear (Clear)
[2025-02-02 14:06] LABS: ALT (SGPT) 19 U/L (0-50); AST (SGOT) 21 U/L (17-59); Albumin 4.9 g/dl (3.5-5.0); Alkaline Phosphatase 65 U/L (38-126); Blood Urea Nitrogen 28 mg/dl (9-20); Calcium 10.4 mg/dl (8.4-10.2); Carbon Dioxide 25 mmol/L (22-30); Chloride 106 mmol/L (98-107); Glucose 110 mg/dl (70-99); Potassium 5.5 mmol/L (3.5-5.1); Sodium 138 mmol/L (135-145); Total Protein 7.6 g/dl (6.3-8.2); eGFR 59.10
[2025-02-02 14:32] LABS: Urine Squamous Cell 0-2 /LPF (Few)
[2025-02-02 14:33] LABS: Urine Red Blood Cell >100 /HPF (0-2)
--- NOTE | 2025-02-02 16:07 | ED.GENMED ---
History of Present Illness
General
Chief Complaint: Flank Pain
Source: patient
Exam Limitations: none
Time Seen by Provider: 02/02/25 15:49
Nursing documentation reviewed up to this point in time: agreed with
History of Present Illness
History of Present Illness:
The patient is a 69-year-old man with a past medical history of A-fib and kidney stones, who reports intermittent right flank pain. Patient reports he first noticed it 2 days ago. It resolved but has now reoccurred today. Patient reports that the
pain today was associated with nausea and vomiting. Currently the pain is mild. He denies fevers and chills.
Past History
Past History
ED Past Medical History: Arrthythmia, HTN and Other (Ocular migraine)
ED Past Surgical History: Other (Noncontributory)
Social History
Tobacco: Non-smoker
Alcohol: Other
Drug: None
Personal:
Living: with family
Employment: Other
Family History
Family History: Other
Review of Systems
Review of Systems
Allergies reviewed?: Yes
All Other Systems: ROS reviewed and negative except as documented in HPI and ROS
Constitutional: Reports no symptoms
EENT: Reports no symptoms
Respiratory: Reports no symptoms
Cardiac: Reports no symptoms
ABD/GI: Reports no symptoms
: Reports flank pain
Musculoskeletal: Reports no symptoms
Skin: Reports no symptoms
Neurological: Reports no symptoms
Endocrine: Reports no symptoms
Hematologic/Lymphatic: Reports no symptoms
Psychiatric: Reports no symptoms
Phy Exam
Physical Exam
Physical Exam:
Physical Exam
General: no apparent distress, not acutely ill
Neck: supple. no meningeal signs. normal psoterior pharynx
Heart: s1/s2 regular rate and rhythm, no murmur. equal radial pulses.
Lungs: no acute respiratory distress. clear bilaterally
Abdomen: normal bowel sounds. not tender. no CVAT
Neuro: alert and oriented. no focal neurological deficits
Skin: no rash
Psychiatric: well kept. interactive and cooperative
Extremities: no edema. no calf tenderness. negative homans. good distal pulses
Course
Orders/Labs/Results
Orders:
Orders
02/02/25 13:43
Complete Blood Count/With Diff Urgent
Comprehensive Metabolic Panel Urgent
Urinalysis Reflex To Culture Urgent
Date Specimen was Collected: 02/02/25
Time Specimen was Collected: 13:35
Urine Microscopic Reflex Cult Urgent
Urine Culture Urgent
AKBAR Source: U
Specimen Description:
Date Specimen was Collected: 02/02/25
Time Specimen was Collected: 13:35
02/02/25 15:57
0.9% Sodium Chloride 1000 ml [Nss] 1,000 ml IV BOLUS
02/02/25 16:06
Electrocardiogram (*1) Urgent
Reason for Study: Other
Other Reason for Exam: hyperkalemia
EKG- Treatment ONCE
02/02/25 16:07
CT Abd/pel Without Iv Or Oral Urgent
Comment:
Reason For Exam: R flank pain radiating towards groin
02/02/25 16:21
Acetaminophen [Tylenol] 1,000 mg .ROUTE .STK-MED ONE
02/02/25 16:24
Acetaminophen [Tylenol] 1,000 mg PO NOW STA
02/02/25 18:33
CefTRIAXone [Rocephin] 1,000 mg IV NOW STA
02/02/25 18:34
Admit/Transfer Patient As Directed
Co-Sign Provider:
Level of Care: Observation services
Assign to:: Medical/Surgical
Physician / Group: titi
Diagnosis: right ureteral stone
02/02/25 18:35
Code Status As Directed
Resuscitation Status: Full Code
PRN Pain Medication Management As Directed
May give lesser potent ordered pain med per pt: Yes
preference::
Protocol:: Medication orders for pain may be administered in a
manner that supports deferring to patient preference
when the pt is:
- Requesting an ordered lesser potent pain medication.
Least to most potent pain medications are defined
as: acetaminophen < NSAID < tramadol < opioids
(morphine, oxycodone, hydromorphone).
- Requesting a lesser dose of the same medication IF
ORDERED.
- Requesting a less intrusive route of administration
if both routes are prescribed by the provider (PO <
IV).
Abnormal Lab Results
02/02/25
13:43
RBC 4.44 L 10^6/uL
(4.70-6.10)
MCV 97.3 H fL
(80.0-94.0)
MCH 32.7 H pg
(27.0-31.0)
MPV 11.0 H fL
(7.4-10.4)
Absolute Monos (auto) 0.7 H 10^3/uL
(0.1-0.6)
Monocytes % 10.1 H %
(1.7-9.3)
Potassium 5.5 H mmol/L
(3.5-5.1)
BUN 28 H mg/dl
(9-20)
Glucose 110 H mg/dl
(70-99)
Calcium 10.4 H mg/dl
(8.4-10.2)
Urine Ketones 1+ A
(Negative)
Ur Occult Blood Reflex 4+ A
(Negative)
Leukocyte Esterase Rfl 1+ A
(Negative)
Urine RBC >100 A /HPF
(0-2)
Urine Albumin (Reflex) 2+ A
(Neg - Trace)
02/02/25 13:43
02/02/25 13:43
Vital Signs
Initial and Last Documented VS:
Initial Vital Signs
Temp Pulse Resp BP Pulse Ox
98.5 F 86 18 172/101 100
02/02/25 13:31 02/02/25 13:31 02/02/25 13:31 02/02/25 13:31 02/02/25 13:31
Last Documented Vital Signs
Temp Pulse Resp BP Pulse Ox
98.5 F 81 22 172/101 100
02/02/25 13:31 02/02/25 17:29 02/02/25 16:45 02/02/25 13:31 02/02/25 16:08
MDM/Problems Addressed
Differential Diagnosis Includes:
Ureteral calculus, pyelonephritis, UTI
MDM/Problems Addressed:
Patient presents with acute right flank pain
Chronic conditions affecting care:
Kidney stones
Acute Exacerbation and/or Progression of Chronic Illness:
Patient may have acute urinary colic due to passage of kidney stones out of kidney
*Radiology
Radiology exam reviewed: radiology read reviewed
*Pulse Oximetry
SaO2: 100
Oxygen Mode of Delivery: Room air
Patient hypoxic: no
Comment: 100% on room air
*Copyright Clerk Interpretation
Rate: Copyright Clerk- N/A
*Critical Care Note
Total Time (30-74mins, 75-104mins- exclusive of procedures): Not Applicable
Data Reviewed
Review of Other/Old Records Reveals: Radiology Studies (CAT scan reviewed from November 2024 when patient had signs of intrarenal calculi without ureteral calculi)
Source: patient and spouse
Patient Management
Social determinants of health affecting care: Living situation and Strong social support
Discussion with other providers: Hospitalist and Other (Dr. galvan from urology who said that patient will be added to the OR schedule tomorrow for likely stent)
ED Attending Note
-
Portions of this chart may have been created with voice recognition software.� Occasional wrong word or��sound alike� substitutions may have occurred due to the inherent limitations of voice recognition software.
Discharge Plan
Departure
Patient Disposition: Admit
Date of Disposition: 02/02/25
Time of Disposition: 18:33
Admit to: Med/Surg
Presentation/result/management discussed w/ accepting MD/DO: Hospitalist
Patient with high blood pressure during this ER visit?: Yes
Discharge Problem:
Right ureteral colic
Interventions
Interventions:
*Risk Screen - Suicide Last Done: 02/02/25 13:31
*General Assessment Last Done: 02/02/25 13:31
*Neglect/Abuse Screening Last Done: 02/02/25 17:30
*ED- Fall Risk Assessment Last Done: 02/02/25 16:32
*ED COVID-19 Vaccine History Last Done: 02/02/25 16:32
[2025-02-02] MEDS: NSS 1000 IV ×2 (16:19→21:15)
[2025-02-02] MEDS: TYLENOL 1000 MG PO (16:25)
[2025-02-02 16:31] VITALS: BMI 32.9
--- NOTE | 2025-02-02 18:55 | HPS.HSE ---
Family Physician
-
Family Physician: Robert Solis
Chief Complaint
-
right flank pain
History of Present Illness
69-year-old male past medical history of paroxysmal atrial fibrillation on Eliquis, pyelonephritis, nephrolithiasis, ocular migraine, hypertension, presenting with intermittent right flank pain starting 2 days ago. It resolved but reoccurred today.
This was associate with nausea and vomiting. Currently pain is mild. Denies fevers or chills. He had blood in the urine a few times after recent admission in December for right-sided pyelonephritis.
He denies smoking or alcohol use currently.
Medical History
Past Medical History
Past Medical History: Reports Other (paroxysmal atrial fibrillation on Eliquis, pyelonephritis, nephrolithiasis, ocular migraine, hypertension, )
Past Surgical History: Reports None
Social History
Tobacco: Non-smoker
Alcohol: None
Drug: None
Family History
Family History: Not pertinent
Allergies / Home Medications
Allergies reflects when Allergies were last updated in [facility].
Home Medications with original date entered in [facility]
Allergy/Medication List:
Allergies
Allergy/AdvReac Type Severity Reaction Status Date / Time
lisinopril Allergy Rash Verified 02/02/25 14:27
metronidazole (From Flagyl) Allergy Rash Verified 12/11/24 12:23
Metronidazole HCl (From Allergy Rash Verified 12/11/24 12:23
Flagyl)
Home Medications
ibuprofen 200 mg tablet (Advil) 200 mg PO Q6HPRN PRN headaches 12/11/24
Lactobacillus acidophilus 10 billion cell capsule (Probiotic) 10,000 mmu cells PO DAILY #14 caps 12/14/24
apixaban 5 mg tablet (Eliquis) 5 mg PO BID #60 tabs 12/14/24
cefdinir 300 mg capsule 300 mg PO BID #22 caps 12/14/24
docusate sodium 100 mg capsule 100 mg PO BID #0 caps 12/14/24
metoprolol tartrate 25 mg tablet 25 mg PO BID #60 tabs 12/14/24
Review of Systems
-
History Source: Patient
A 12 point ROS was completed and negative except as noted: Yes
Constitutional: Reports No Symptoms
EENT: Reports No Symptoms
Respiratory: Reports No Symptoms
Cardiac: Reports No Symptoms
Abdomen/GI: Reports No Symptoms
: Reports No Symptoms
Musculoskeletal: Reports No Symptoms
Skin: Reports No Symptoms
Neurological: Reports No Symptoms
Endocrine: Reports No Symptoms
Hematologic/Lymphatic: Reports No Symptoms
Psych: Reports No Symptoms
Physical Exam
Vital Signs
Vital Signs
Temp Pulse Resp BP Pulse Ox
98.5 F 81 22 172/101 100
02/02/25 13:31 02/02/25 17:29 02/02/25 16:45 02/02/25 13:31 02/02/25 16:08
Physical Exam
General: Well Developed, Well Nourished and No Apparent Distress
HEENT: NormoCephalic, Moist mucous membranes and Atraumatic
Respiratory: Clear
Cardiac: S1/S2 and Regular Rhythm; No Murmur or Rub
GI: Soft, Non Tender, Non Distended and Normal Bowel Sounds; No Organomegaly
Rectal: Deferred by Provider
Musculoskeletal: No Clubbing, No Cyanosis and No Edema
Skin: No Rash
Neuro: Nonfocal/grossly intact
Laboratory Results
-
02/02/25 13:43
02/02/25 13:43
Laboratory Results
Total Bilirubin 1.2 mg/dl (0.2-1.3) 02/02/25 13:43
AST 21 U/L (17-59) 02/02/25 13:43
ALT 19 U/L (0-50) 02/02/25 13:43
Alkaline Phosphatase 65 U/L (38-126) 02/02/25 13:43
Data Reviewed
-
Lab Data: Labs Reviewed by me
Old Records: Reviewed
Impression/Plan
-
IMPRESSION:
PLAN:
# Right hydroureteronephrosis secondary to ureteral calculus
-Urinalysis just shows microscopic hematuria
- CT abdomen pelvis shows 8 mm proximal right ureteral calculus with associated moderate right hydroureteronephrosis
- Hold Eliquis
- IV fluids
-Ceftriaxone dose given
- Urology consulted
-Continue tamsulosin
- N.p.o. past midnight
- Zofran, Toradol, Dilaudid as needed
Paroxysmal atrial fibrillation
- Hold Eliquis
- Continue metoprolol 12.5 twice daily
History of right-sided pyelonephritis
History of ocular migraines
Essential hypertension
Full code
DVT prophylaxis SCDs
Regular diet, n.p.o. past midnight
[2025-02-02] MEDS: ROCEPHIN 1000 MG IV (19:47)
[2025-02-02 20:17] VITALS: BP 155/96
[2025-02-02 21:00] VITALS: BP 179/112; BMI 32.1
[2025-02-02 21:30] VITALS: BP 163/88
--- NOTE | 2025-02-02 22:00 | PTCARENOTE ---
PT 69-year-old male arrived from ED with his at 21;00. CT Abd/Pelvis - 8 mm proximal right ureteral calculus with associated moderate right hydroureteronephrosis PMH recent dx paroxysmal atrial fibrillation on Eliquis last dose 02/02 at 08:00,
pyelonephritis, nephrolithiasis, ocular migraine, hypertension, presenting with intermittent right flank pain starting 2 days ago. Pt sent from ED as M/S pt. Pt and concerned he was not a tele pt, because of recent dx of aFib & the his Eliquis
was held for tomorrow's procedure. I also request Metoprolol 12.5mg dose be given tonight, usually BID. FIELD SERVICER placed tele order and ordered Metoprolol 12.5mg be given tonight, Tele initiated & Metoprolol given. Pt bed in a low position, call light in
reach, pt denies pain at this time, care ongoing.
[2025-02-02] MEDS: LOPRESSOR 12.5 MG PO (22:04)
[2025-02-02 23:04] VITALS: BP 153/90
[2025-02-03 00:15] VITALS: BMI 32.1
[2025-02-03 03:05] VITALS: BP 155/81
[2025-02-03] MEDS: NSS 1000 IV (04:44)
[2025-02-03 06:24] LABS: Hematocrit 37.6 % (39.0-52.0); Hemoglobin 12.7 g/dL (13.0-18.0); Mean Corp Hgb Conc. 33.8 g/dL (33.0-37.0); Mean Corpuscular Volume 95.2 fL (80.0-94.0); Nucleated Red Blood Cells % 0 % (-); Platelet Count 205 10^3/uL (130-400); Red Cell Dist. Width 13.0 % (11.5-14.5)
[2025-02-03 06:48] LABS: ALT (SGPT) 15 U/L (0-50); AST (SGOT) 16 U/L (17-59); Albumin 3.6 g/dl (3.5-5.0); Alkaline Phosphatase 53 U/L (38-126); Blood Urea Nitrogen 23 mg/dl (9-20); Calcium 9.5 mg/dl (8.4-10.2); Carbon Dioxide 23 mmol/L (22-30); Chloride 111 mmol/L (98-107); Estimated Creatinine Clearance 61 ml/min; Glucose 92 mg/dl (70-99); Potassium 4.8 mmol/L (3.5-5.1); Sodium 138 mmol/L (135-145); Total Protein 5.8 g/dl (6.3-8.2); eGFR 59.10
--- NOTE | 2025-02-03 07:58 | W.PN.UPDATE ---
Update Note
Progress Note Update
Patient admitted by ED for hydration and pain control o/n.
CTAP w/o IV contrast => 8 mm proximal right ureteral stone w/ moderate right hydroureteronephrosis.
WBC WNL
Cr WNL (mildly elevated from baseline)
UA not grossly indicative of UTI (neg nitrites/WBCs)
Afebrile, VSS
Patient notes no renal colic o/n or this AM - 'feels great.'
Patient initially added to OR schedule as add-on for stent placement today (due to Eliquis anticoagulation and risk of bleeding from ureteroscopy).
Patient expressed his desire to go home on MET as he has urologic F/U on 02/17 already scheduled.
Plan:
- CANCEL OR plan per patient request
- Continue tamsulosin 0.4 mg qhs
- advise opioid analgesics (prn)
- ED visit precautions reviewed
- Will have office prepone preop visit to 1 week (rather than 02/17) to discuss/schedule outpatient ULS
D/w patient.
D/w Dr. Davis.
[2025-02-03 08:03] VITALS: BP 161/91
--- NOTE | 2025-02-03 08:25 | W.PN.UPDATE ---
Update Note
Progress Note Update
I saw and evaluated the patient. I reviewed the resident�s note and agree with findings and plan as documented in the resident�s note.
Denies abd/flank pain.
Gen: NAD, AAOx3.
Eyes: EOMI, PERRLA, no scleral icterus.
Neck: supple.
CV: irreg/irreg, +S1/S2, no m/r/g.
Resp: CTAB, no rales, wheezes, or rhonchi.
Abd: +BS, soft, NT, ND
Skin: No rashes.
Neuro: CN 2-12 intact, non-focal.
Psych: Normal mood and affect.
CT A/P: 8 mm proximal right ureteral calculus with associated moderate right hydroureteronephrosis.
Right hydroureteronephrosis due to ureteral calculus:
-no evidence of infection at this time (afebrile, no leukocytosis, no pyuria)
-s/p IVFs
-case discussed with Dr. Florian, OK for d/c with outpt follow up, will provide short supply of oxycodone
-cont Flomax
Other problems:
PAF: resume Eliquis and no plans for OR as per Uro and Hb at baseline. cont BB.
h/o R-sided pyelonephritis
h/o ocular migraines
Essential HTN: cont BB
FULL/SCDs
Medically cleared for discharge.
Total time spent on d/c = 33 min. This included today's physical exam, progress note, review of laboratory and diagnostic data, preparation of discharge documents and prescriptions, and discussions about the pt's hospital course and discharge plan
with the patient and other medical records coordinator involved in the patient's care.
--- NOTE | 2025-02-03 08:44 | W.PN.HOSP.TC ---
Today's Communication/Plan
-
- continue on outpatient pain meds, urology outpatient follow up
Assessment / Plan
Assessment / Plan
Rt hydroureteronephrosis due to ureteral calculus:
- Patient has no fever, chills, weight loss, malaise, weakness, no elevated wbc, afebrile, no pyuria
- confirmed on CT scan abdomen/ pelvis
- s/p iv fluids
- Consulted by Dr. Chang- Patient initially added to OR schedule as add-on for stent placement today (due to Eliquis anticoagulation and risk of bleeding from ureteroscopy).Patient expressed his desire to go home on MET as he has urologic F/U on
02/17 already scheduled. will see o/p urology in 1 week rather than on 02/17/25.
- continue on tamsulosin outpatient, and opioid analgesics on discharge
Paroxysmal atrial fibrillation
- resume Eliquis on discharge
- Continue metoprolol 12.5 twice daily
History of ocular migraines
Essential hypertension:
- continue metoprolol
Anticipated Discharge: Today
Subjective/Interval History
-
Date of Service: February 03, 2025
no acute medical complaints.
no overnight events.
Objective Data
-
Labs:
Laboratory Results
02/03/25
05:56
WBC 6.4
Hgb 12.7 L
Hct 37.6 L
Plt Count 205
Sodium 138
Potassium 4.8
Chloride 111 H
Carbon Dioxide 23
BUN 23 H
Creatinine 1.3
Glucose 92
Calcium 9.5
Total Bilirubin 1.1
AST 16 L
ALT 15
Alkaline Phosphatase 53
Vital Signs:
Vital Signs
Temp Pulse Resp BP Pulse Ox
97.9 F 91 16 161/91 97
02/03/25 08:03 02/03/25 08:03 02/03/25 08:03 02/03/25 08:03 02/03/25 08:03
I&O
02/02/25 02/03/25 02/04/25
06:59 06:59 06:59
Intake Total 1200 / 1200
Output Total 1000 / 1000
Balance -1000 / 200 1200 / 1200
Review of Systems
-
History Source: Patient
All other systems: Reviewed and negative
Physical Exam
-
General: Well Developed and Well Nourished
Respiratory: Clear to Auscultation
Cardiac: Regular Rhythm and S1/S2
GI: Soft, Nontender, Nondistended, Normal Bowel Sounds and Other
Genito-urinary: Costovertebral Angle Tend (very mild tenderness on the right side)
Musculoskeletal: No Clubbing, No Cyanosis and No Edema
Skin: Warm and Dry
Neuro: AO x 3
Psych: Calm
Data Reviewed
-
CT Scan: Report Reviewed by me and Discussed with Physician
Labs: Labs Reviewed by me and Discussed with Physician
[2025-02-03] MEDS: FLOMAX 0.4 MG PO (09:08)
[2025-02-03] MEDS: LOPRESSOR 12.5 MG PO (09:42)
--- NOTE | 2025-02-03 11:16 | CM ---
CM following re: discharge planning.
Reviewed pt's chart, met with pt.
Pt is a 69 year old male, admitted with OBS status and primary dx of Right hydroureteronephrosis secondary to ureteral calculus. OBS status explained to the pt, pt expressed understanding, declined to sign, KANG letter placed on chart, pt has a
copy.
Pt reports he lives with spouse 2SH, 1 step to enter, has 3 supportive children. Pt described himself as inde[]ndent in all areas [employer], drives. No DME, VN or SNF history.
Discharge order noted. Both pt and his spouse are aware, pt's spouse will transport home.
No after care VN services indicated.
PCP: Robert Solis
Pharmacy: [facility]
D/C plan: home no needs. Spouse to transport.
[2025-02-03 11:24] VITALS: BP 150/57
--- NOTE | 2025-02-03 11:44 | PTCARENOTE ---
Patient ambulating with a steady gait. Patient has no c/o pain and is eager to go home. Spouse at bedside. Patient is voiding clear yellow urine, urine strained and no stone noted.
--- NOTE | 2025-02-03 13:37 | W.DCSUMMARY ---
Discharge Summary
Discharge Data
Date of Admission: 02/02/25
Date of Discharge: 02/03/25
-
Pending Results: No
Hospital Course
Discharging Physician : Dr. Henrry Davis and Dr. Ryne Thorne
Disposition : Home
Primary care physician : Dr. Robert Solis
Principal Discharge diagnosis : Right hydroureteronephrosis due to ureteral calculus
Chronic Discharge diagnosis : Paroxysmal atrial fibrillation, essential hypertension, history of ocular migraines, history of right-sided pyelonephritis
Hospital Course : 69-year-old male with past medical history of paroxysmal atrial fibrillation on Eliquis, pyelonephritis, nephrolithiasis, ocular migraine, hypertension, presenting with acute moderate intermittent sharp colicky right flank pain
starting 2 days ago associated with nausea and vomiting. Denies fevers, chills, malaise, weakness, diarrhea.
Problem #1: Right hydroureteronephrosis due to ureteral calculus
- On admission labs WBC is 6.4 and normal, hemoglobin is 14.5 and normal (12.7 on discharge) , potassium is 5.5 and mildly elevated (normalized on discharge at a level of 4.8), creatinine is 1.3 (same on discharge). Vitals are stable and patient is
afebrile. Abdominal pelvis CT which showed 8 mm proximal right ureteral calculus with associated moderate right hydroureteronephrosis. Urinalysis shows microscopic hematuria and urine cultures negative. Initial measures included holding Eliquis
and intensification of surgery, starting IV fluids, giving empiric antibiotics such as ceftriaxone, starting tamsulosin, making patient n.p.o. in anticipation of procedure, pain control with Zofran/Toradol/Dilaudid as needed and then consulting
urology. Today on 02/03/2025, patient's stent placement was canceled as patient expressed desire to go home on medical expulsive therapy as he has urologic follow-up on 02/17/[address] Espino. Dr. Chang then advised patient
to schedule a follow-up in 1 week rather than on 02/17/2025 to discuss and schedule a uteroscopy with lithotripsy. Patient is discharged on tamsulosin 0.4 Mg nightly, oxycodone for pain, and instructions to hydrate adequately to try and flush out
stone. He has no evidence of infection at the time of discharge and is afebrile, no leukocytosis, no pyuria. CBC in 1 week with PCP.
Problem #2: Paroxysmal atrial fibrillation
- On admission studies, EKG showed atrial fibrillation rhythm.His home dose of Eliquis 5 mg twice daily was held due to the anticipation of a procedure, however since no procedure was performed patient is restarted on home dose of Eliquis for
discharge. His metoprolol 12.5 Mg twice daily was continued during course of hospital stay. On discharge his heart rate was 62, well-controlled, asymptomatic, no overnight events on telemetry.
Problem #3: Essential hypertension
-Patient's blood pressures 150/57 on discharge , asymptomatic, continue on home dose metoprolol for discharge. Please follow-up with PCP in 1 week.
Problem #4: History of ocular migraines
Problem #5: History of right-sided pyelonephritis
Important imaging findings :
Abdominal/pelvic CT on 02/02/2025:
-IMPRESSION:
8 mm proximal right ureteral calculus with associated moderate right hydroureteronephrosis.
Procedure findings :
Discharge Plan
-
Patient Disposition: Home (Routine Discharge)
Discharge Diagnosis/Procedures: right hydroureteronephrosis secondary to renal calculus, paroxysmal atrial fibrillation, history of right sided pyelonephritis, history of ocular migraines, essential hypertension
Condition: Fair
Diet: Regular
Activity: As tolerated
Driving Restrictions: Not until seen by your Dr
Bathing Restrictions: None
Referrals:
Robert Solis MD [Family Provider, Family Practice] - in less than 1 week
Matthew Espino MD [Active, Urology]
Referral Note: You will be scheduled for a preop visit with Dr. Espino in 1 week after discharge to discuss/schedule kidney stone surgery.
Prescriptions:
New
tamsulosin 0.4 mg Capsule
0.4 mg PO DAILY Qty: 30 0RF
oxycodone 5 mg capsule
5 mg PO Q6H PRN (Reason: Pain) Qty: 7 0RF
Continued
metoprolol tartrate 25 mg Tablet
25 mg PO BID Qty: 60 0RF
Eliquis 5 mg Tablet
5 mg PO BID Qty: 60 0RF
Discontinued
ibuprofen [Advil] 200 mg Tablet
200 mg PO Q6HPRN PRN (Reason: headaches)
Patient Comments:
pt said he last took late November 2024
docusate sodium 100 mg Capsule
100 mg PO BID Qty: 0 0RF
Patient Comments:
pt said he stopped taking late November 2024
cefdinir 300 mg capsule
300 mg PO BID Qty: 22 0RF
Patient Comments:
pt said he stopped taking early December 2024
Probiotic 10 billion cell capsule
10,000 mmu cells PO DAILY Qty: 14 0RF
Patient Comments:
pt said he stopped taking early December 2024
Discharge Orders:
Discharge Patient (As Directed); Ordered 02/03/25
Ordered By: Henrry Davis
Discharge Date and Time
Discharge Date/Time: 02/03/25 12:32
Print Language: LATVIAN
== END 2025-02-03 12:32 | disposition home or self-care (01) ==
LOC: 2 SOUTH 19:14
PROVIDERS: ADMITTING PHYSICIAN Hospitalist; ATTENDING PHYSICIAN Internal Medicine; EMERGENCY PHYSICIAN Emergency Medicine; FAMILY PHYSICIAN Family Medicine
DX: N13.2 Hydronephrosis with renal and ureteral calculous obstruction (principal); I48.0 Paroxysmal atrial fibrillation; I10 Essential (primary) hypertension; R11.2 Nausea with vomiting, unspecified; Z53.29 Procedure and treatment not carried out because of patient's decision for other reasons; Z87.442 Personal history of urinary calculi; Z88.8 Allergy status to other drugs, medicaments and biological substances; Z88.1 Allergy status to other antibiotic agents; Z79.01 Long term (current) use of anticoagulants; Z79.899 Other long term (current) drug therapy
CPT/HCPCS: 74176; 80053; 81003; 81015; 85025; 87086; 93005; 96374; 99285; G0378

== ENCOUNTER 2025-02-16 06:25 | Day surgery (SDC) | payer MEDICARE, SELFPAY ==
--- NOTE | 2025-02-14 13:25 | PTCARENOTE ---
Patients 02/02 ECG abnormal- reviewed by Dr. Mcgraw, no additional interventions required
[2025-02-16] VITALS (8 sets, daily range): BP systolic 134–171; BP diastolic 86–101; BMI 32.1
[2025-02-16] MEDS: NORMOSOL-R/PLASMALYTE-A 1000 IV (10:00)
[2025-02-16 10:16] LABS: Urine Character Clear (Clear)
== END 2025-02-16 13:23 | disposition home or self-care (01) ==
LOC: SDS 06:25
PROVIDERS: ATTENDING PHYSICIAN Specialist
DX: N20.1 Calculus of ureter (principal); Z87.442 Personal history of urinary calculi
CPT/HCPCS: 52356; 74018; 76000; 81003; 87070; 87086; C1894; C2617

== ENCOUNTER 2025-06-14 09:01 | Day surgery (SDC) | payer MEDICARE, SELFPAY | END 2025-06-14 11:45 | disposition home or self-care (01) | LOC: CATH 09:01 | PROVIDERS: ATTENDING PHYSICIAN Internal Medicine; FAMILY PHYSICIAN Family Medicine | DX: I48.91 Unspecified atrial fibrillation (principal); I08.1 Rheumatic disorders of both mitral and tricuspid valves; I08.8 Other rheumatic multiple valve diseases | CPT/HCPCS: 93312; 93325; 93320 ==